=== PATIENT | female | born 1960 ===

== ENCOUNTER 2018-01-06 11:43 | Outpatient (CLI) | payer OTHER | END 2018-01-06 15:03 | disposition home or self-care (01) | LOC: RAD 11:43 | DX: M17.0 Bilateral primary osteoarthritis of knee (principal) ==

== ENCOUNTER 2018-01-10 09:50 | Outpatient (CLI) | payer OTHER | END 2018-01-10 10:04 | disposition home or self-care (01) | LOC: SONOGRAMA 09:50 | DX: M25.541 Pain in joints of right hand (principal); M25.542 Pain in joints of left hand ==

== ENCOUNTER 2023-02-15 09:34 | Outpatient (CLI) | payer OTHER | END 2023-02-15 10:17 | disposition home or self-care (01) | LOC: SONOGRAMA 09:34 | DX: M05.79 Rheumatoid arthritis with rheumatoid factor of multiple sites without organ or systems involvement (principal) ==